=== PATIENT | male | born 1980 | race Caucasian/White ===

== ENCOUNTER 2022-08-31 20:50 | Emergency (ER) | payer MEDICAID, SELFPAY ==
[2022-08-31 21:01] VITALS: BP 151/86; PULSE 103; RESP 16; TEMP 37.1; O2SAT 98; BMI 26.1
--- NOTE | 2022-08-31 21:26 | HMH.EDGENADL ---
Discharge Plan Disposition Patient Disposition: Home, Self-Care Prescriptions Prescriptions: New doxycycline hyclate 100 mg capsule 100 mg PO BID 10 Days Qty: 20 0RF No Action ciprofloxacin HCl [Cipro] 500 mg Tablet 500 mg PO BID Referrals Follow up/Referrals: Provider,Referral, MD [Primary Care Provider] - See instructions Activity Restrictions/Add. Instructions Additional Instructions/Restrictions: Please have your wounds reevaluated in 48 to 72 hours. You may floss the vessel loop every day until it is not draining any further at which point you can cut it out. Return with any worsening symptoms. Clinical Impressions Clinical Impression: Abscess of arm, right, Cellulitis of arm, right, Abscess of arm, left, Cellulitis of arm, left Instructions Patient Instructions: DI for Skin Abscess Discharge ED Provider: Olvin Foster General Adult HPI General Chief complaint: Skin/Abscess/Foreign Body Stated complaint: spot on LT elbow Time Seen by Provider: 08/31/22 21:12 History of Present Illness HPI narrative: Patient is a 41-year-old male here with multiple abscesses and surrounding cellulitis. He has had multiple abscesses in the past that have been incised and drained. He has been on clindamycin for 2 months preceding this without any significant improvement. He recently had a culture that was done at [facility] from one of the wounds that prompted him to start him on ciprofloxacin. He is here with worsening symptoms. No fevers or chills he has locations of abscesses and cellulitis on bilateral posterior aspect of upper arms. Related Data Home Medications Medication Instructions Recorded Confirmed ciprofloxacin HCl 500 mg tablet 500 mg PO BID Skin Condition 08/31/22 08/31/22 (Cipro) Previous Rx's Medication Instructions Recorded doxycycline hyclate 100 mg capsule 100 mg PO BID 10 days #20 caps 08/31/22 Allergies Allergy/AdvReac Type Severity Reaction Status Date / Time sulfamethoxazole Allergy Unknown Verified 08/31/22 21:27 [From Bactrim] trimethoprim [From Bactrim] Allergy Unknown Verified 08/31/22 21:27 [facility] Disclaimer: The information contained in this section may have been updated after the patient was seen, as this information can be updated by other users. Social History Smoking Status: Current every day smoker tobacco type: cigarettes alcohol intake: never substance use type: methamphetamine and other (suboxone abuse) current occupational status: other Travel in the last 8 weeks: None ROS Obtained: Yes All systems reviewed & no additional complaints except as documented Physical Exam General General appearance: alert Respiratory Respiratory exam: Present normal lung sounds bilaterally; Absent wheezes Cardiovascular Cardiovascular exam: Present regular rate; Absent tachycardia Neurological Exam Neurological exam: Present alert and oriented X3 Skin Skin exam: Present other (Right posterior aspect of the upper arm there is a 2 x 2 area of inflammation and purulent drainage and surrounding cellulitis left elbow on the distal aspect of the upper arm there is a 2 x 2 centimeter area of fluctuance and surrounding cellulitis that is about 5 x 5 cm) Medical Decision Making Fernando Inquiry Pt receiving controlled substance: No Vital Signs: 08/31/22 21:01 Temperature 98.7 F Temperature Source Oral Pulse Rate [Left Radial] 103 H Respiratory Rate 16 Blood Pressure [Right Thigh] 151/86 H Blood Pressure Mean [Right Thigh] 107 Blood Pressure Source [Right Thigh] Automatic Cuff Blood Pressure Position [Right Thigh] Sitting 02 Sat by Pulse Oximetry 98 Oxygen Delivery Method Room Air Orders (Tests/Meds): ED MEDICATIONS Generic Name Dose Route Start Last Admin Trade Name Alexanderq PRN Reason Stop Dose Admin Doxycycline Hyclate 100 mg 08/31/22 22:16 Doxycycline Hycl 100 Mg Tablet PO 08/31/22 22:17 ONCE ONE
--- NOTE | 2022-08-31 21:30 | PC.NURSE ---
REPORT GIVEN TO AMANDA MANRIQUEZ
--- NOTE | 2022-08-31 21:36 | PC.NURSE ---
Spoke with powerhouse engineer, Eloisa, at [facility] to obtain medical records
[2022-08-31 22:23] VITALS: BP 131/75; PULSE 79; RESP 19; TEMP 36.7; O2SAT 98
== END 2022-08-31 22:33 | disposition home or self-care (01) ==
PROVIDERS: Emergency Provider Student in an Organized Health Care Education/Training Program
DX: L03.113 Cellulitis of right upper limb (principal); L03.114 Cellulitis of left upper limb; L02.413 Cutaneous abscess of right upper limb; L02.414 Cutaneous abscess of left upper limb; F17.210 Nicotine dependence, cigarettes, uncomplicated
CPT/HCPCS: 10060; 99283

== ENCOUNTER 2023-08-24 19:45 | Emergency (ER) | payer SELFPAY ==
[2023-08-24 19:47] VITALS: BP 131/84; PULSE 104; RESP 18; TEMP 36.9; O2SAT 95; BMI 28.4
--- NOTE | 2023-08-24 20:07 | ED_ITS ---
<Statement entered by Carlos Mason MD - 08/24/23 23:24> I was consulted by the CHANCE, and we discussed the complexity of the problems being addressed. I approved the treatment and management plan for this patient's care in the emergency department, thus performing a substantive portion of the medical decision making. Carlos Mason MD Discharge Plan Disposition Patient Disposition: Home, Self-Care Condition: Good Prescriptions Prescriptions: New clindamycin HCl 150 mg capsule 450 mg PO QID 10 Days Qty: 120 0RF No Action ciprofloxacin HCl [Cipro] 500 mg Tablet 500 mg PO BID doxycycline hyclate 100 mg capsule 100 mg PO BID 10 Days Qty: 20 0RF Referrals Follow up/Referrals: Provider,Referral, [Primary Care Provider] - See instructions Activity Restrictions/Add. Instructions Additional Instructions/Restrictions: Follow-up closely with your PCP within 48 hours. Return to ER for any worsening signs or symptoms as needed Clinical Impressions Clinical Impression: Cellulitis of left elbow Instructions Patient Instructions: Cellulitis Discharge ED Provider: Carlos Mason General Adult HPI General Chief complaint: PAIN Stated complaint: Left elbow red and swollen Time Seen by Provider: 08/24/23 20:07 Mode of Arrival: Ambulatory Source of Information: Patient Limitations: No Limitations Description of Symptoms (Recalled from ER Triage Doc. by RN): Patient presented to the ED for left elbow pain and swelling. Patient does have a history of MRSA. History of Present Illness HPI narrative: Patient presents for evaluation of redness and swelling of his left elbow. Patient noticed that his left elbow began hurting today and then it started to swell and turn red. He does not report any history of trauma. He does not know if he was bit or if this is a potential pimple. 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 He denies chest pain fever chills hemoptysis hematochezia melena nausea vomit diarrhea. He reports no pain with motion of the joint itself is all superficial. Related Data Home Medications Medication Instructions Recorded Confirmed ciprofloxacin HCl 500 mg tablet 500 mg PO BID Skin Condition 08/31/22 08/31/22 (Cipro) Previous Rx's Medication Instructions Recorded doxycycline hyclate 100 mg capsule 100 mg PO BID 10 days #20 caps 08/31/22 clindamycin HCl 150 mg capsule 450 mg (3 x 150 mg) PO QID 10 days 08/24/23 #120 caps Allergies Allergy/AdvReac Type Severity Reaction Status Date / Time sulfamethoxazole Allergy Unknown Verified 08/31/22 21:27 [From Bactrim] trimethoprim [From Bactrim] Allergy Unknown Verified 08/31/22 21:[address] [facility] Disclaimer: The information contained in this section may have been updated after the patient was seen, as this information can be updated by other users. Social History (Updated 08/31/22 @ 22:22 by Olvin Foster MD) Smoking Status: Current every day smoker tobacco type: cigarettes alcohol intake: never substance use type: methamphetamine and other (suboxone abuse) current occupational status: other Travel in the last 8 weeks: None ROS Obtained: Yes Systems reviewed as appropriate & no additional complaints except as documented Physical Exam General General appearance: alert and in no apparent distress Respiratory Respiratory exam: Present normal lung sounds bilaterally Cardiovascular Cardiovascular exam: Present regular rate and normal rhythm Neurological Exam Neurological exam: Present alert and oriented X3 Expanded Skin Exam Body image: 2 1. Central area of a pimple without pointing along with localized induration that appears to be limited to the superficial tissues without fluctuance. Medical Decision Making Medical Records Medical records reviewed: Yes I reviewed the patient's medical records. Fernando Inquiry Pt receiving controlled substance: No Vital Signs: 08/24/23 19:47 Temperature 98.4 F Temperature Source Oral Pulse Rate [Right Brachial] 104 H Respiratory Rate 18 Blood Pressure [Right Arm] 131/84 Blood Pressure Mean [Right Arm] 99 02 Sat by Pulse Oximetry 95 Orders (Tests/Meds): ED MEDICATIONS Discontinued Medications Generic Name Dose Route Start Last Admin Trade Name Freq PRN Reason Stop Dose Admin Clindamycin HCl 450 mg 08/24/23 21:00 Clindamycin 150mg Capsule PO 08/31/23 20:59 QID DARIUSZ Clindamycin HCl 450 mg 08/24/23 20:56 Clindamycin 150mg Capsule PO 08/24/23 20:57 ONCE ONE Medical Decision Narrative: In summary patient is a 42-year-old male who presents to the emergency department for evaluation of left elbow redness and swelling. Patient is hemodynamically stable upon arrival, afebrile. Physical exam is remarkable for superficial cellulitis with possibly early developing abscess from a pimple over the olecranon of the left elbow. Patient has no pain with joint range of motion testing.. Differential diagnosis includes cellulitis versus bursitis etc. Initial workup was considered with lab work but patient is nontoxic.. Initial interventions include clindamycin. We had an interactive discussion with the patient with her options including IV Dalvance versus trial of oral antibiotics. Patient via self-directed decision making elected for oral antibiotics with strict return instructions. Given this patient is appropriate for discharge with a prescription for clindamycin with first dose given now. Critical Care Critical Care Time Critical Care Time: No
[2023-08-24] MEDS: CLINDAMYCIN 150MG CAPSULE 450 MG PO (21:00)
[2023-08-24 21:02] VITALS: BP 134/80; PULSE 84; RESP 20; TEMP 37.1; O2SAT 97
== END 2023-08-24 21:07 | disposition home or self-care (01) ==
PROVIDERS: Emergency Provider Emergency Medicine
DX: L03.114 Cellulitis of left upper limb (principal); F17.210 Nicotine dependence, cigarettes, uncomplicated
CPT/HCPCS: 99283